=== PATIENT | male | born 1990 | race Caucasian/White ===

== ENCOUNTER 2019-04-12 11:51 | Day surgery (SDC) | payer OTHER ==
[2019-04-12] MEDS ORDERED: LACTATED RINGERS 1,000 ML IV ONE (12:15)
[2019-04-12] MEDS ORDERED: VANCOMYCIN INJ 2 GM in SODIUM CHLORIDE 0.9% 500 ML IV ONE (13:00)
--- NOTE | 2019-04-12 13:03 | ANESTHESIA ---
Pre-Anesthesia VS, & Labs - Diagnosis 2nd finger fx - Procedure L external fixation 2nd finger Vital Signs: Temp Pulse Resp BP Pulse Ox 36.6 C 69 18 129/87 H 100 04/12/19 12:03 04/12/19 12:03 04/12/19 12:03 04/12/19 12:03 04/12/19 12:03 Height 6 ft Weight (kg) 86.18 kg - NPO >8 hours Last Fluid Intake: 1 cup black coffee@0900 Home Medications and Allergies Home Medications: Ambulatory Orders Ibuprofen [Motrin] 600 mg PO Q6H PRN 04/10/19 Active Medications Vancomycin HCl 2 gm/ Sodium (Chloride) 500 mls @ 250 mls/hr IV ONCE ONE Stop: 04/12/19 14:59 Ibuprofen [Motrin] 600 mg PO Q6H PRN 04/10/19 Allergies/Adverse Reactions: Allergies Allergy/AdvReac Type Severity Reaction Status Date / Time No Known Drug Allergies Allergy Verified 04/10/19 15:51 Anes History & Medical History - Anesthetic History Anesthesia Complications: reports: No previous complications Family history of Anesthesia Complications: Denies Family history of Malignant Hyperthermia: Denies - Medical History Cardiovascular: reports: None Pulmonary: reports: None Gastrointestinal: reports: None Urinary: reports: None Musculoskeletal: reports: Other Endocrine/Autoimmune: reports: None Skin: reports: None Smoking Status: Light tobacco smoker (pipe occasionally) - Surgical History Dermatologic: Other Other Past Surgical History: wisdom teeth, benign mass at L calf muscle excision Exam General: Alert, Cooperative Dental: WNL Mouth Opening: Greater than 4 Fingerbreadths Neck Mobility: Normal Mallampati classification: I Thyromental Distance: 4-6 cm Respiratory: Lungs clear, Normal breath sounds Cardiovascular: Regular rate Neurological: Normal speech Mental/Cognitive Status: Alert/Oriented X3, Normal for patient Cognitive Status: Within normal limits Plan Anesthesia Type: General Consent for Procedure(s) Verified and Reviewed: Yes Code Status: Attempt Resuscitation ASA classification: 2-Mild systemic disease Is this case an emergency?: No
[2019-04-12] MEDS ORDERED: BUPIVACAINE 0.25% PF 30 ML VIAL ONE (14:36)
[2019-04-12] MEDS ORDERED: BUPIVACAINE 0.25% PF 30 ML VIAL SUBQ ONE ×2 (17:08)
[2019-04-12] MEDS ORDERED: fentaNYL 100 MCG/2 ML VIAL IVP ONE (17:50)
[2019-04-12] MEDS ORDERED: KETOROLAC 30 MG/ML VIAL IVP ONE (17:50)
[2019-04-12] MEDS ORDERED: PROPOFOL 200 MG/20 ML VIAL IVP ONE (17:50)
[2019-04-12] MEDS ORDERED: DEXAMETHASONE 4 MG/ML VIAL IVP ONE (17:50)
[2019-04-12] MEDS ORDERED: MIDAZOLAM 2 MG/2 ML VIAL IVP ONE (17:50)
[2019-04-12] MEDS ORDERED: LIDOCAINE-MPF 2% 5 ML VIAL IM ONE (17:50)
[2019-04-12] MEDS ORDERED: ONDANSETRON 4 MG/2 ML VIAL IVP ONE (17:50)
[2019-04-12] MEDS ORDERED: ONDANSETRON 4 MG/2 ML VIAL IVP PRN (18:47)
[2019-04-12] MEDS ORDERED: oxyCODONE 5 MG TABLET PO PRN (18:47)
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
[2019-04-12] MEDS ORDERED: ACETAMINOPHEN 1,000 MG/100 ML 100 ML IV ONE (19:11)
[2019-04-12 20:19] VITALS: BP 138/92
== END 2019-04-12 20:45 | disposition home or self-care (01) ==
LOC: SDS 11:51 → ICU 18:31 → SDS 20:45
PROVIDERS: ATTEND Orthopaedic Surgery
PROC: 0PSQ04Z Reposition Left Metacarpal with Internal Fixation Device, Open Approach (ICD-10-PCS; principal; 2019-04-12 14:15)
DX: S62.611A Displaced fracture of proximal phalanx of left index finger, initial encounter for closed fracture (principal); V19.3XXA Pedal cyclist (driver) (passenger) injured in unspecified nontraffic accident, initial encounter; Y93.55 Activity, bike riding; Y92.828 Other wilderness area as the place of occurrence of the external cause; Y99.8 Other external cause status; Z72.0 Tobacco use; Z86.14 Personal history of Methicillin resistant Staphylococcus aureus infection
CPT/HCPCS: 26746; 87150; A9270; J0131; J3370; J7120